=== PATIENT | female | born 1965 | race Caucasian/White ===

== ENCOUNTER 2024-01-17 19:10 | Emergency (ER) | payer BC ==
[2024-01-17 19:33] VITALS: BP 110/76; PULSE 75; RESP 18; TEMP 98.7; BMI 20.9
== END 2024-01-17 19:30 | disposition home or self-care (01) ==
LOC: FER 19:10
DX: S20.161A Insect bite (nonvenomous) of breast, right breast, initial encounter (principal); R23.4 Changes in skin texture; W57.XXXA Bitten or stung by nonvenomous insect and other nonvenomous arthropods, initial encounter
CPT/HCPCS: 99282-25